=== PATIENT | female | born 1995 | race Caucasian/White ===

== ENCOUNTER → 2017-04-06 | Outpatient (CLI) | payer BC ==
[~2017-04-06] MED LIST: KEFLEX500 MG PO; TYLENOL500 MG PO; ULTRAM50 MG PO
== END | disposition home or self-care (01) ==
LOC: RAD 10:41
DX: R07.9 Chest pain, unspecified (principal); F17.200 Nicotine dependence, unspecified, uncomplicated; R05 Cough; R06.2 Wheezing

== ENCOUNTER → 2019-05-28 | Outpatient (CLI) | payer BC | END | disposition home or self-care (01) | LOC: US 01:06 | DX: N83.292 Other ovarian cyst, left side (principal) ==

== ENCOUNTER → 2019-07-23 | Outpatient (CLI) | payer BC | END | disposition home or self-care (01) | LOC: US 07-22 10:00 | DX: N83.202 Unspecified ovarian cyst, left side (principal) ==

== ENCOUNTER → 2021-02-15 | Outpatient (CLI) | payer BC | END | disposition home or self-care (01) | LOC: LAB 13:22 | PROVIDERS: ATTEND Nurse Practitioner Women's Health | DX: N93.9 Abnormal uterine and vaginal bleeding, unspecified (principal) ==

== ENCOUNTER → 2021-02-21 | Outpatient (CLI) | payer BC ==
[2021-02-21 12:52] LABS: BASO % 0.2 % (0.0-1.0); EOS # 0.1 10*3/uL (0.0-0.4); EOS % 0.7 % (1.0-4.0); LYMPH # 2.3 10*3/uL (1.3-4.4); LYMPH % 19.7 % (27.0-41.0); MEAN CORPUSCULAR HGB 31.9 pg (27.0-31.0); MEAN CORPUSCULAR HGB CONC 33.9 g/dl (33.0-37.0); MEAN PLATELET VOLUME 9.5 fl (9.6-12.3); MONO # 0.7 10*3/uL (0.1-1.0); MONO % 5.8 % (3.0-9.0); NEUT # 8.7 10*3/uL (2.3-7.9); NEUT % 73.3 % (47.0-73.0); PLATELET COUNT AUTOMATED 357 10*3/uL (130-400); RED BLOOD COUNT 4.36 10*6/uL (4.10-5.10); RED CELL DISTRI WIDTH 11.8 % (0-14.5); WHITE BLOOD COUNT 11.8 10*3/uL (4.8-10.8)
== END | disposition home or self-care (01) ==
LOC: LAB 12:36
PROVIDERS: ATTEND Nurse Practitioner Women's Health
DX: O02.1 Missed abortion (principal)

== ENCOUNTER → 2021-08-30 | Outpatient (CLI) | payer BC | END | disposition home or self-care (01) | LOC: RAD 15:38 | PROVIDERS: ATTEND Internal Medicine | DX: M79.632 Pain in left forearm (principal) ==

== ENCOUNTER → 2021-12-21 | Outpatient (CLI) | payer BC ==
[2021-12-21 17:55] LABS: ALKALINE PHOSPHATASE 67 U/L (45-117); GAMMA GLUTAMYL TRANSPEPTIDASE 60 U/L (5-55); IRON 44 ug/dL (50-170); SGOT/AST 24 IU/L (3-35); SGPT/ALT 62 U/L (12-78)
[2021-12-22 08:08] LABS: HEPATITIS B SURFACE AB Reactive (.)
[2021-12-22 09:07] LABS: HBSAG Negative (Negative); HEP B CORE AB, IGM Negative (Negative); HEPATITIS C ANTIBODY 0.1 (0.0-0.9)
[2021-12-22 10:08] LABS: ALPHA-1-ANTITRYPSIN, SERUM 152 mg/dL (100-188); IMMUNOGLOBULIN G, QNT 880 mg/dL (586-1602); IMMUNOGLOBULIN M, QNT 157 mg/dL (26-217)
[2021-12-22 14:07] LABS: ANTI-SMOOTH MUSCLE ANTIBODY 21 Units (0-19)
== END ==
LOC: LAB 16:39
PROVIDERS: ATTEND Internal Medicine
DX: R79.89 Other specified abnormal findings of blood chemistry (principal)

== ENCOUNTER → 2022-02-19 | Outpatient (CLI) | payer BC | END | disposition home or self-care (01) | LOC: US 10:16 | PROVIDERS: ATTEND Internal Medicine | DX: R79.89 Other specified abnormal findings of blood chemistry (principal) ==